=== PATIENT | male | born 1940 | race Caucasian/White ===

== ENCOUNTER 2017-05-31 07:03 | Emergency (ER) | payer OTHER ==
[~2017-05-31] VITALS: Ht 177.8 cm; Wt 86.2 kg
--- NOTE | ~2017-05-31 | EKG ---
[address] [place] [address] ELECTROCARDIOGRAM REPORT Name: KRISTINE ALFRED Room #: DEP [facility] [id number] Admission: 05/31/17 Attend Phys: Discharge: 05/31/17 Date of : 38 Report #: [id number] THIS REPORT FOR: //name// [facility] ED Test Date: 2017-05-31 Test Time: 07:24:36 Pat Name: KRISTINE ALFRED Department: Room: Gender: M Resin Shaver: ELISEO : 1940 Requested By: Sofy Acevedo Order Number: [id number] MD: Dre Lopez Measurements Intervals [place] Rate: 89 P: 48 NM: 164 QRS: -12 QRSD: 89 T: 62 QT: 397 QTc: 484 Interpretive Statements Sinus rhythm Inferior infarct, old Anterior infarct, old Compared to ECG 03/14/2004 09:29:55 Criteria for inferior infarct are now present Electronically Signed On 06-01-2017 7:50:41 CDT by Dre Lopez [email or web address] <ELECTRONICALLY SIGNED> By: Dre Lopez MD, [facility] 06/01/17 0750 3 3 Dre Lopez MD, [facility] /EPI
[2017-05-31 07:48] LABS: ABSOLUTE NEUTROPHILS 2.8 thou/uL (1.4-8.2); BASOPHILS 0.8 % (0.0-2.0); EOSINOPHILS 0.6 % (0.0-3.0); HEMATOCRIT 48.7 % (42.0-52.0); HEMOGLOBIN 16.6 gm/dL (14.0-18.0); LYMPHOCYTES 20.7 % (24.0-44.0); MCV 94.3 fL (80.0-100.0); MONOCYTES 8.3 % (1.0-8.0); PLATELET COUNT 165 thou/uL (150-400); POLYS 69.6 % (36.0-66.0); RBC 5.16 mil/uL (4.50-6.00); RDW 13.8 % (10.5-14.5)
[2017-05-31 07:56] LABS: MANUAL DIFF NO
[2017-05-31 07:59] LABS: ANION GAP 8 mmol/L (7-16); BUN 19 mg/dL (7-18); CALCIUM 9.3 mg/dL (8.5-10.1); CHLORIDE 102 mmol/L (98-107); CO2 29 mmol/L (21-32); CREATININE 1.2 mg/dL (0.7-1.3); GLUCOSE 171 mg/dL (74-106); POTASSIUM 4.2 mmol/L (3.5-5.1); SODIUM 139 mmol/L (136-145)
[2017-05-31 08:07] LABS: MAGNESIUM 2.1 mg/dL (1.8-2.4); TROPONIN-I < 0.04 ng/mL (<0.04-0.07)
[2017-05-31] MEDS ORDERED: PRINIVIL10 MG PO (09:18)
[2017-05-31] MEDS ORDERED: ATORVASTATIN CA40 MG PO (09:18)
[2017-05-31] MEDS ORDERED: LOPRESSOR50 PO (09:18)
[2017-05-31] MEDS ORDERED: ASPIR 8181 MG PO (09:19)
[2017-05-31 10:40] VITALS: BP 135/73
== END 2017-05-31 10:43 | disposition home or self-care (01) ==
LOC: ER 07:03
PROVIDERS: Emergency Medicine
DX: R42 Dizziness and giddiness (principal); R00.2 Palpitations; I10 Essential (primary) hypertension; F10.99 Alcohol use, unspecified with unspecified alcohol-induced disorder; Z86.79 Personal history of other diseases of the circulatory system

== ENCOUNTER 2019-03-07 10:46 | Emergency (ER) | payer OTHER ==
[~2019-03-07] VITALS: Ht 177.8 cm; Wt 86.2 kg
[~2019-03-07 10:46] MED LIST: ASPIR 8181 MG PO; ATORVASTATIN CA40 MG PO; LOPRESSOR50 PO; PRINIVIL10 MG PO
[2019-03-07 11:26] LABS: HEMOGLOBIN 16.4 gm/dL (14.0-18.0); RDW 13.8 % (10.5-14.5); WBC 3.8 thou/uL (4.0-11.0)
[2019-03-07 11:28] LABS: ABSOLUTE NEUTROPHILS 2.7 thou/uL (1.4-8.2); EOSINOPHILS 0.7 % (0.0-3.0); HEMATOCRIT 48.1 % (42.0-52.0); LYMPHOCYTES 18.9 % (24.0-44.0); MCH 31.7 pg (26.0-34.0); MCHC 34.1 g/dL (28.0-37.0); MCV 92.8 fL (80.0-100.0); MONOCYTES 7.3 % (1.0-8.0); PLATELET COUNT 186 thou/uL (150-400); POLYS 72.1 % (36.0-66.0); RBC 5.18 mil/uL (4.50-6.00)
[2019-03-07 11:36] LABS: ANION GAP 9 mmol/L (7-16); BUN 21 mg/dL (7-18); CALCIUM 9.2 mg/dL (8.5-10.1); CHLORIDE 101 mmol/L (98-107); CO2 26 mmol/L (21-32); CREATININE 1.1 mg/dL (0.7-1.3); GLUCOSE 195 mg/dL (74-106); POTASSIUM 4.1 mmol/L (3.5-5.1); SODIUM 136 mmol/L (136-145)
[2019-03-07 11:47] LABS: ALBUMIN 4.4 g/dL (3.4-5.0); DIRECT BILIRUBIN 0.1 mg/dL (<0.1-0.3); LIPASE 172 U/L (73-393); MAGNESIUM 2.3 mg/dL (1.8-2.4); SGOT 26 U/L (15-37); SGPT 30 U/L (30-65); TOTAL BILIRUBIN 0.7 mg/dL (<0.1-1.0); TROPONIN-I <0.06 ng/mL (<0.06)
[2019-03-07] MEDS ORDERED: UNICOMPLEX M TA1 TA1 PO (11:56)
[2019-03-07] MEDS ORDERED: CLARITIN10 MG PO (11:56)
[2019-03-07] MEDS ORDERED: OMEPRAZOLE 20 M20 M1 PO (12:34)
[2019-03-07 13:14] VITALS: BP 125/65
--- NOTE | 2019-03-08 09:25 | EKG ---
[place] [address] [place] [address] ELECTROCARDIOGRAM REPORT Name: KRISTINE ALFRED [facility] #: [facility] [id number] ������������������ Admission: 03/07/19 ������������������ Attend Phys: Discharge: 03/07/19 ������������������ Date of : 38 Report #: [id number] ����������������������������������������������������������������� [id number] THIS REPORT FOR: //name// [facility] ED Test Date: 2019-03-07 Test Time: 11:05:41 Pat Name: KRISTINE ALFRED Department: Room: Gender: M Pasteurizer: gerry : 1940 Requested By: Sofy Acevedo Order Number: [id number] MD: Dre Lopez Measurements Intervals [place] Rate: 78 P: 82 [place]: 164 QRS: 46 QRSD: 98 T: 86 QT: 380 QTc: 433 Interpretive Statements Sinus rhythm Anterior infarct, old Compared to ECG 05/31/2017 07:24:36 No significant changes Electronically Signed On 03-08-2019 9:25:30 CDT by Dre Lopez [email or web address] ��������������������������������������������� <ELECTRONICALLY SIGNED> ���������������������������������������� By: Dre Lopez MD, [facility] ��������������������������������������������� 03/08/19 0925 1105 1105 Dre Lopez MD, [facility] /EPI
== END 2019-03-07 13:14 | disposition home or self-care (01) ==
LOC: ER 10:46
PROVIDERS: Emergency Medicine
DX: R42 Dizziness and giddiness (principal); I10 Essential (primary) hypertension; R00.0 Tachycardia, unspecified

== ENCOUNTER 2020-02-14 23:20 | Inpatient (IN) | payer OTHER ==
[~2020-02-14] VITALS: Ht 177.8 cm; Wt 86.2 kg
--- NOTE | ~2020-02-14 | EMS ---
[address] [address] EMS Patient Care Report Name: KRISTINE ALFRED Room #: REG [place]#: [id number] Admission: 02/14/20 Attend Phys: Discharge: Date of : 38 Report #: [id number] THIS REPORT FOR: //name// Report Transmitted: 02/15/2020 01:07 EMS Care Summary [facility] MED-ACT Incident [id number] @ 02/14/2020 22:29 Incident Location [address] [place] [address] Patient KRISTINE ALFRED Male, 79 Years 1940 Patient Address [address] [place] [address] Patient History Hypertension (HTN),Cardiac - Stent,Coronary Artery Bypass Graft (CABG), Patient Allergies No known allergies, Patient Medications Metoprolol, Atorvastatin, Chief Complaint Chest discomfort Disposition Transported No Lights/[place] Dispatch Reason Chest Pain (Non-Traumatic) Transported To [facility] Narrative [id number] arrived at a residence to find pt. sitting in chair in living room, being assessed by OPFD. Pt. reports that at about 6 p.m. this evening, he was going on a walk, and started noticing discomfort in his chest that radiated down his left arm. Pt. also reports he felt "shaky" and "like something wasn't right". [address] [address] EMS Patient Care Report Name: KRISTINE ALFRED Room #: REG [facility]#: [id number] Admission: 02/14/20 Attend Phys: Discharge: Date of : 39 Report #: [id number] Pt. reports these symptoms felt similar to a previous heart attack he experienced in 2003. Pt. reports he took 324mg ASA and one NTG tablet prior to our arrival, and the symptoms have mostly subsided. Pt. still complains of a "shaky" feeling and overall malaise. Pt. denies headache or dizziness, trouble breathing, nausea/vomiting, or any recent illness/injury. Acquired 12 lead EKG prior to moving pt. EKG showed no significant changes/findings. Once EKG was acquired, assisted pt. from chair to cot. Secured to cot and moved to ambulance. Initiated venous access and reassessed EKG, vitals signs, and pt. condition. Pt. reported he felt "mostly better" prior to arrival at the hospital. Vital signs remained unchanged. Assisted pt. from cot to hospital bed and gave report to RN at [facility]. Initial Vitals @PTAP: 90,BP: 201/103,SpO2: 96, @PTAP: 81,SpO2: 97, @22:41P: 78,R: 18,BP: 172/94,Pain: 2/10,GCS: 15,Glucose: 146,SpO2: 95,Revised Trauma: 12,KS Suspected: false @PTAP: 91,BP: 178/127, @22:51P: 84,BP: 188/113,SpO2: 83, @22:55P: 86,BP: 211/104,SpO2: 81, Assessments @22:40MENTAL:Person Oriented,Time Oriented,Place Oriented,Event Oriented,SKIN:Pale,HEENT:Head/Face: No Abnormalities,Eyes: No Abnormalities,Neck/Airway: No Abnormalities,LUNG SOUNDS:Right Upper: Other,Left Upper: No Abnormalities,Left Lower: No Abnormalities,Right Lower: No Abnormalities,ABDOMEN:Right Upper: Other,Left Upper: No Abnormalities,Left Lower: No Abnormalities,Right Lower: No Abnormalities,PELVIS//GI:No Abnormalities,EXTREMITIES:Left Arm: No Abnormalities,Right Arm: No Abnormalities,Left Leg: No Abnormalities,Right Leg: No Abnormalities,PULSE:NEURO:No Abnormalities, Impression Angina pectoris Procedures @22:4012-Lead ECGResponse: UnchangedSucceeded@22:50Saline Lock 10cc (18 ga) Site: Antecubital-RightResponse: UnchangedSucceeded@PTAAspirin - 324 Milligrams (mg) - OralResponse: Unchanged Timeline SUPERVISOR STATEMENT CLERKS,Aspirin - 324 Milligrams (mg) - Oral,Response: Unchanged SUPERVISOR STATEMENT CLERKS,BP: 201/103 M,PULSE: 90,RR: R,SPO2: 96 Ox,ETCO2: ,BG: ,PAIN: ,GCS: , SUPERVISOR STATEMENT CLERKS,BP: / M,PULSE: 81,RR: R,SPO2: 97 Ox,ETCO2: ,BG: ,PAIN: ,GCS: , SUPERVISOR STATEMENT CLERKS,BP: 178/127 M,PULSE: 91,RR: R,SPO2: Ox,ETCO2: ,BG: ,PAIN: ,GCS: , 22:25,Call Received [address] [address] EMS Patient Care Report Name: KRISTINE ALFRED Room #: REG [facility].#: [id number] Admission: 02/14/20 Attend Phys: Discharge: Date of : 38 Report #: [id number] 22:25,Psap Call 22:29,Dispatched 22:30,En Route 22:36,On Scene 22:38,At Patient 22:40,12-Lead ECG,Response: UnchangedSucceeded, 22:41,BP: 172/94 M,PULSE: 78,RR: 18 R,SPO2: 95 Ox,ETCO2: ,B,PAIN: 2,GCS: 15, 22:50,Saline Lock 10cc 18 ga Site: Antecubital-Right,Response: UnchangedSucceeded, 22:51,BP: 188/113 M,PULSE: 84,RR: R,SPO2: 83 Ox,ETCO2: ,BG: ,PAIN: ,GCS: , 22:54,Depart Scene 22:55,BP: 211/104 M,PULSE: 86,RR: R,SPO2: 81 Ox,ETCO2: ,BG: ,PAIN: ,GCS: , 23:03,At Destination 23:27,Call Closed Disclaimer v1.1 Copyright 2020 [employer] This EMS Care Summary contains data elements from the applicable legal record (which may be displayed differently). It is designed to provide pertinent information for the following purposes: continuity of care, clinical quality, and state data reporting. The complete legal record is available to ED staff and administrators of the receiving hospital in [employer]'s Patient Tracker. All data is provided "as is."
[~2020-02-14 23:20] MED LIST changes: +CLARITIN10 MG PO; +OMEPRAZOLE 20 M20 M1 PO; +UNICOMPLEX M TA1 TA1 PO
[2020-02-14 23:27] VITALS: BP 182/103
[2020-02-15] VITALS (7 sets, daily range): BP systolic 114–151; BP diastolic 65–101
[2020-02-15 00:54] LABS: ABSOLUTE NEUTROPHILS 2.1 thou/uL (1.4-8.2); BASOPHILS 0.5 % (0.0-2.0); EOSINOPHILS 1.2 % (0.0-3.0); HEMATOCRIT 46.5 % (42.0-52.0); HEMOGLOBIN 15.8 gm/dL (14.0-18.0); LYMPHOCYTES 42.9 % (24.0-44.0); MCHC 33.9 g/dL (28.0-37.0); MCV 94.4 fL (80.0-100.0); MONOCYTES 9.8 % (1.0-8.0); PLATELET COUNT 194 thou/uL (150-400); POLYS 45.6 % (36.0-66.0); RBC 4.93 mil/uL (4.50-6.00); RDW 13.8 % (10.5-14.5); WBC 4.7 thou/uL (4.0-11.0)
[2020-02-15 00:55] LABS: ANION GAP 12 mmol/L (7-16); BUN 21 mg/dL (7-18); CALCIUM 8.6 mg/dL (8.5-10.1); CHLORIDE 100 mmol/L (98-107); CO2 27 mmol/L (21-32); CREATININE 1.3 mg/dL (0.7-1.3); GLUCOSE 142 mg/dL (74-106); POTASSIUM 3.6 mmol/L (3.5-5.1); SODIUM 139 mmol/L (136-145)
[2020-02-15 01:05] LABS: ALBUMIN 4.1 g/dL (3.4-5.0); SGOT 34 U/L (15-37); SGPT 28 U/L (30-65); TOTAL BILIRUBIN 0.6 mg/dL (<0.1-1.0); TOTAL PROTEIN 7.7 g/dL (6.4-8.2); TROPONIN-I <0.06 ng/mL (<0.06)
--- NOTE | 2020-02-15 03:44 | NUR ---
ADMITTED FROM ED. PT AT HOME 2 EPISODES OF CHEST PAIN. FIRST AROUND 1800 SIDES OF CHEST AND L ARM. ANOTHER EPISODE AT REST LATER IN THE EVENING. EMS CALLED. PT LIVES WITH AT HOME. RETIRED FRAME NAILER. INDEP STEADY GAIT. NO CHEST PAIN AT THIS TIME. PT HAS BELONGINGS AT BEDSIDE. PT HAS HX OF NE 1997, HTN, CABG HX AND PT OF DR DURAN AND PCP ANDREZ. PT VERBALIZED UNDERSTANDING TO CALL FOR AMBULATION ASSISTANCE. SCDS ON.
[2020-02-15] MEDS ORDERED: TOPROL XL50 MG PO (04:05)
[2020-02-15 07:39] LABS: CHOLESTEROL 127 mg/dL (<200); HDL CHOLESTEROL 37 mg/dL (>40); LDL CHOLESTEROL 75 mg/dL (<100); TC:HDL 3.4 Ratio (Not establshd); TRIGLYCERIDE 77 mg/dL (<150); VLDL 15 mg/dL (<40)
--- NOTE | 2020-02-15 10:01 | EKG ---
[facility] [place] [address] ELECTROCARDIOGRAM REPORT Name: KRISTINE ALFRED Room #: 215-P ADM IN M.R.#: [id number] Admission: 02/15/20 Attend Phys: Chuy Townsend MD Discharge: Date of : 39 Report #: [id number] THIS REPORT FOR: cc: Jerald Alcazar MD, Rene P. MD Lundgren,Dre Nesbitt MD [facility] ~ THIS REPORT FOR: //name// [facility] ED Test Date: 2020-02-14 Test Time: 23:10:30 Pat Name: KRISTINE ALFRED Department: Room: [facility] Gender: M Change Analyst: HERMINIO : 1940 Requested By: Froylan Ramsey Order Number: [id number] MD: Dre Lopez Measurements Intervals [place] Rate: 81 P: 76 MO: 177 QRS: 5 QRSD: 87 T: 65 QT: 377 QTc: 438 Interpretive Statements Sinus rhythm Ventricular premature complex Probable left atrial enlargement Poor R wave progression Compared to ECG 03/07/2019 11:05:41 Ventricular premature complex(es) now present Electronically Signed On 02-15-2020 10:00:07 CDT by Dre Lopez [email or web address] <ELECTRONICALLY SIGNED> By: Dre Lopez MD, [facility] 02/15/20 1000 2310 2310 Dre Lopez MD, [facility] /EPI
--- NOTE | 2020-02-15 10:19 | 2DMMODE ---
[facility] [place] [address] 2 D/M-MODE ECHOCARDIOGRAM Name: KRISTINE ALFRED Room #: 215-P ADM IN M.R.#: [id number] Admission: 02/15/20 Attend Phys: Chuy Townsend MD Discharge: Date of : 38 Report #: [id number] THIS REPORT FOR: cc: Jerald Alcazar MD, Rene P. MD Lundgren, Craig H. MD [facility] ~ APPROVED REPORT Study performed: 02/15/2020 09:14:21 EXAM: Comprehensive 2D, Doppler, and color-flow Echocardiogram Patient Location: Bedside Room #: 215 Status: on-call BSA: 2.04 HR: 75 bpm BP: 146/77 mmHg Rhythm: NSR/PVCs Other Information Study Quality: Adequate Technically limited study due to lung artifact. Indications Chest Pain Hx: CABG, PVD, HTN, HLP. 2D Dimensions RVDd: 37.32 mm IVSd: 13.00 (7-11mm) LVOT Diam: 22.24 (18-24mm) LVDd: 47.00 mm PWd: 10.38 (7-11mm) LVDs: 30.18 (25-40mm) Aortic Root: 33.39 mm Volumes Left Atrial Volume (Systole) Single Plane 4CH: 46.27 mL Single Plane 2CH: 53.20 mL LA ESV Index: 27.00 mL/m2 Aortic Valve AoV Peak Burton.: 2.24 m/s AO Peak Gr.: 20.10 mmHg LVOT Max P.65 mmHg AO Mean Gr.: 12.41 mmHg [facility] [address] [place] [address] 2 D/M-MODE ECHOCARDIOGRAM Name: KRISTINE ALFRED Room #: 215-P [facility].#: [id number] Admission: 02/15/20 Attend Phys: Chuy Townsend MD Discharge: Date of : 38 Report #: [id number] AO V2 Mean: 1.69 m/s LVOT Max V: 1.08 m/s AO V2 VTI: 44.55 cm KATIE Vmax: 1.87 cm2 Mitral Valve E/A Ratio: 0.7 MV Decel. Time: 204.12 ms MV E Max Burton.: 0.58 m/s MV A Burton.: 0.84 m/s MV PHT: 59.19 ms IVRT: 119.95 ms Pulmonary Valve PV Peak Burton.: 0.78 m/s PV Peak Gr.: 2.46 mmHg Tricuspid Valve TR Peak Burton.: 2.52 m/s RAP Estimate: 5.00 mmHg TR Peak Gr.: 25.35 mmHg PA Pressure: 30.00 mmHg Left Ventricle The left ventricle is normal size. Mild basal septal hypertrophy is present. Left ventricular systolic function is normal. LVEF is 55-60%. Distal septal akinesis Mild diastolic dysfunction Right Ventricle The right ventricle is normal size. The right ventricular systolic function is normal. Atria The left atrium size is normal. The right atrium size is normal. Aortic Valve Aortic valve is mildly calcified, possibly bicuspid; mild stenosis. No aortic regurgitation is present. There is very mild valvular aortic stenosis. Calculated aortic valve area is 1.9 cm2 with maximum pressure gradient of 20 mmHg and mean pressure gradient of 12 mmHg. Mitral Valve The mitral valve is normal in structure. No mitral regurgitation. No evidence of mitral valve stenosis. Tricuspid Valve The tricuspid valve is normal in structure. Mild tricuspid [facility] [address] [place] [address] 2 D/M-MODE ECHOCARDIOGRAM Name: ALFREDKRISTINE SHA Room #: 215-P [facility] IN .R.#: [id number] Admission: 02/15/20 Attend Phys: Chuy Townsend MD Discharge: Date of : 38 Report #: [id number] regurgitation. Estimated PAP is 30mmHg. Pulmonic Valve Pulmonic valve is not well visualized. Great Vessels The aortic root is normal in size. Ascending aorta is not well visualized. IVC is normal in size and collapses >50% with inspiration. Pericardium There is no pericardial effusion. <Conclusion> Left ventricular systolic function is normal. LVEF is 55-60%. Distal septal akinesis Mild diastolic dysfunction Aortic valve is mildly calcified, possibly bicuspid; mild stenosis. No insufficiency Calculated aortic valve area is 1.9 cm2 with maximum pressure gradient of 20 mmHg and mean pressure gradient of 12 mmHg. The mitral valve is normal in structure. No mitral regurgitation. Mild tricuspid regurgitation. Estimated pulmonary artery pressure of 30mmHg. There is no pericardial effusion. <ELECTRONICALLY SIGNED> By: Dre Lopez MD, [facility] 02/15/20 1017 1017 1017 Dre Lopez MD, [facility] /INF
--- NOTE | 2020-02-15 19:56 | NUR ---
ASSUMED CARE OF PT AT SHIFT CHANGE. ASSESSMENTS CHARTED. MEDS GIVEN PER DEC. PT A&OX4, NO C/O PAIN. UP AD MOHSEN. PLAN FOR ANTIOGRAM ON MONDAY. WILL CONTINUE TO MONITOR.
--- NOTE | 2020-02-16 01:31 | NUR ---
PT LYING IN BED. DENIES PAIN. RESTING COMFORTABLY. NO NEEDS VOICED. CALL LIGHT WITHIN REACH. FREQUENT OBSERVATION.
[2020-02-16 05:42] VITALS: BP 154/88
[2020-02-16 05:50] LABS: CREATININE 1.1 mg/dL (0.7-1.3); POTASSIUM 3.8 mmol/L (3.5-5.1)
[2020-02-16 05:55] LABS: GLYCOHEMOGLOBIN (HGB A1C) 6.1 % (4.8-5.6)
[2020-02-16 08:00] VITALS: BP 127/71
[2020-02-16 08:40] VITALS: BP 106/58
--- NOTE | 2020-02-16 10:12 | EKG ---
[facility] [place] [address] ELECTROCARDIOGRAM REPORT Name: KRISTINE ALFRED Room #: 215-P ADM IN M.R.#: [id number] Admission: 02/15/20 Attend Phys: Chuy Townsend MD Discharge: Date of : 38 Report #: [id number] THIS REPORT FOR: cc: Jerald Alcazar MD, Rene P. MD Lundgren,Dre Nesbitt MD [facility] ~ THIS REPORT FOR: //name// [facility] Test Date: 2020-02-15 Test Time: 10:16:01 Pat Name: KRISTINE ALFRED Department: Room: 215 Gender: M Internal Sales: : 1940 Requested By: Susana Hathaway Order Number: [id number] MD: Dre Lopez Measurements Intervals [place] Rate: 76 P: 73 [place]: 169 QRS: 32 QRSD: 97 T: 78 QT: 394 QTc: 444 Interpretive Statements Sinus rhythm Cannot rule out inferior infarct, old Compared to ECG 02/14/2020 23:10:30 Ventricular premature complex(es) no longer present Electronically Signed On 02-16-2020 10:10:40 CDT by Dre Lopez [email or web address] <ELECTRONICALLY SIGNED> By: Dre Lopez MD, [facility] 02/16/20 1010 1016 1016 Dre Lopez MD, [facility] /EPI
--- NOTE | 2020-02-16 10:29 | EKG ---
[facility] [place] [address] ELECTROCARDIOGRAM REPORT Name: KRISTINE ALFRED Room #: 215-P ADM IN M.R.#: [id number] Admission: 02/15/20 Attend Phys: Chuy Townsend MD Discharge: Date of : 38 Report #: [id number] THIS REPORT FOR: cc: Jerald Alcazar MD, Rene P. MD Lundgren,Dre Nesbitt MD [facility] ~ THIS REPORT FOR: //name// [facility] Test Date: 2020-02-16 Test Time: 10:13:46 Pat Name: KRISTINE ALFRED Department: Room: 215 P Gender: M Estate Planning Paralegal: AIDE : 1940 Requested By: Dre Lopez Order Number: [id number] MD: Dre Lopez Measurements Intervals [place] Rate: 73 P: 65 [place]: 177 QRS: -3 QRSD: 96 T: 70 QT: 404 QTc: 446 Interpretive Statements Sinus rhythm Ventricular premature complex Inferior infarct, old Baseline wander in lead(s) V1 Compared to ECG 02/15/2020 10:16:01 Ventricular premature complex(es) now present Electronically Signed On 02-16-2020 10:27:51 CDT by Dre Lopez [email or web address] <ELECTRONICALLY SIGNED> By: Dre Lopez MD, [facility] 02/16/20 1027 1013 1013 Dre Lopez MD, [facility] /EPI
[2020-02-16 16:00] VITALS: BP 128/71
--- NOTE | 2020-02-16 16:07 | NUR ---
PT CARE ASSUMED AT 0700. ASSESSMENTS CHARTED. MEDICATION CHARTED. POSSIBLE ANGIOGRAM 02/17/20. PT NPO AFTER 0000. PT COOPERATIVE.
[2020-02-16 16:30] VITALS: BP 128/71
[2020-02-16 20:56] VITALS: BP 106/67
[2020-02-17] VITALS (9 sets, daily range): BP systolic 99–146; BP diastolic 57–96
--- NOTE | 2020-02-17 01:54 | NUR ---
PT AMBULATING INDEPENDENTLY AND IS TOLERATING WELL. DENIES PAIN. PLAN FOR ANGIOGRAM 02/16. RESTING COMFORTABLY. NO NEEDS VOICED. CALL LIGHT WITHIN REACH. FREQUENT OBSERVATION.
[2020-02-17] MEDS ORDERED: LISINOPRIL20 MG PO (12:31)
--- NOTE | 2020-02-17 13:50 | NUR ---
RECEIVED PT'S CARE AROUND 0730; PT. ON BED; AOX4; PARTIAL AM MEDICATION GIVEN BEFORE GOING FOR CARDIAC CATH; NPO; VS WNL; GONE FRO PROCEDURE BEFORE 0800; BACK TO FLOOR CLOSE TO 1000; R. GROIN AREA; C/D/I; EDUCATED ABOUT BED REST; EDUCATED ABOUT HOLDING PRESSURE WHILE COUGHING; [facility]; HR ON THE 50s; NO C/O SOB OR DIZZINESS; OFF BED REST AT 1200; EDUCATED ABOUT STANDING SLOW DUE TO BEING OF BED REST FOR A FEW HOURS; [facility]; SR ON THE MONITOR; D/C ORDERS ON PLACE; EDUCATED ABOUT D/C PROCESS; [facility]; ASSESSMENT CHARGED; FOLLOWED POC; REQUESTED TO TALK WITH DR. DURAN; WATER QUALITY TESTER & PHYSICIAN NOTIFIED; PT. UPDATE ABOUT THEY WILL COMUNICATE WITH PT EITHER TODAY 02/17/2020 OR 02/18/2020; [facility];
--- NOTE | 2020-02-18 16:54 | CATHLAB ---
[facility] [place] [address] INVASIVE PROCEDURE REPORT Name: KRISTINE ALFRED Room #: 215-P DIS IN M.R.#: [id number] Admission: 02/15/20 Attend Phys: Jayden Patel Discharge: 02/17/20 Date of : 38 Report #: [id number] THIS REPORT FOR: cc: Jerald Alcazar MD, Rene P. MD Mancuso, Gerald M. MD [facility] ~ APPROVED REPORT Study performed: 02/17/2020 07:18:45 Patient Details Patient Status: In-Patient Room #: The patient is a 79 year-old male Event Personnel Bayron Duarte Engagement Specialist, Chari Wade RN, Jenny Garcia RTR, NUMERICAL CONTROL NESTING OPERATOR Scrub, Brook Garg Monitor, MICH WESTBROOK RN international account manager Performed Art Access - R femoral artery* Aortogram Abdominal Peripheral Angio 163235 14587 Initial Mod Sed Same Phys/QHP Gr 202982 55786 Mod Sed Same Phys/QHP Ea 862209 Left Heart Cath Coronaries, Bypass Grafts 1591096 LHCCORCABG Indication Chest pain Procedure Narrative The Right Groin^ was infiltrated with 1% Lidocaine subcutaneous anesthesia. A PINNACLE 6FR Sheath #[id number] sheath was inserted into the RFA 6F^. Coronary angiography was performed using coronary diagnostic catheters. The right coronary system was accessed and visualized with a JR4 catheter. The left coronary system was accessed and visualized with a JL4 catheter. The left ventricle was accessed and visualized with a STR PIG catheter. Left ventriculogram was performed in 30 degree projection. An aortogram of the abdominal aorta was performed. The patient tolerated the procedure well and there were no complications associated with the procedure. There was no hematoma. 3 GRAFTS: LOKESH TO LAD, SVG-TAMMY., AND SVG TO RCA (occluded) Intraoperative Conscious Sedation Sedation start time: 815 Case end Time: [facility] [address] [place] [address] INVASIVE PROCEDURE REPORT Name: KRISTINE ALFRED Room #: 215-P [facility] IN M.R.#: [id number] Admission: 02/15/20 Attend Phys: Jayden Roy Discharge: 02/17/20 Date of : 38 Report #: [id number] 0900 Fentanyl 75 mcg Versed 1 mg Fluoro Time: 3.40 minutes Dose: DAP 4661.70 cGycm2 573 mGy Contrast Type and Amount: Omnipaque 155 ml Hemodynamics The aortic pressure is 148/79 mmHg with a mean of 41 mmHg. The left ventricular pressure is 145/7 mmHg with a mean of mmHg. The left ventricular end diastolic pressure is 13 mmHg. Conclusion #1. 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 #3 the MITCHELL to LAD is intact is briskly filling a well preserved distal two thirds of this LAD and retrograde to a small diagonal branch. This supplies some of the inferior apex is a wraparound LAD. #4 RCA was a dominant vessel. It subtotally occluded proximally and then chronic total occlusion of the distal two thirds long segment faintly filling the small PDA via bridging collaterals. #5 the SVG to the PDA is occluded very proximal segment. Appears chronic. #6 the SVG to the OM branch is widely patent. It is retrograde filling a smaller OM system proximally. And some competitive filling into the AV groove circumflex. Mild disease noted. #7 normal left ventricular size systolic function mildly reduced with some anterior apical and mid inferior apical hypokinesis EF 50% range. 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 Recommendations plan: Continue aggressive risk factor modification. No indication for coronary intervention. Will monitor closely and obtain nuclear correlation to follow these complex anatomy. No indication for intervention. <ELECTRONICALLY SIGNED> By: Bayron Duarte MD, FACC 02/18/201651 51 51 Bayron Duarte MD, [facility]ACC /INF
== END 2020-02-17 14:30 | disposition home or self-care (01) | DRG 281 ==
LOC: ER 23:20 → EROBS 02-15 01:40 → 2N 02-15 01:40
PROVIDERS: Emergency Medicine; Nurse Practitioner Family; ADMIT Hospitalist
PROC: B2151ZZ Fluoroscopy of Left Heart using Low Osmolar Contrast (ICD-10-PCS; principal; 2020-02-17)
PROC: B2111ZZ Fluoroscopy of Multiple Coronary Arteries using Low Osmolar Contrast (ICD-10-PCS; principal; 2020-02-17)
PROC: B2131ZZ Fluoroscopy of Multiple Coronary Artery Bypass Grafts using Low Osmolar Contrast (ICD-10-PCS; principal; 2020-02-17)
PROC: B4101ZZ Fluoroscopy of Abdominal Aorta using Low Osmolar Contrast (ICD-10-PCS; principal; 2020-02-17)
PROC: 4A023N7 Measurement of Cardiac Sampling and Pressure, Left Heart, Percutaneous Approach (ICD-10-PCS; principal; 2020-02-17)
PROC: B2181ZZ Fluoroscopy of Left Internal Mammary Bypass Graft using Low Osmolar Contrast (ICD-10-PCS; principal; 2020-02-17)
DX: I21.4 Non-ST elevation (NSTEMI) myocardial infarction (principal); T82.855A Stenosis of coronary artery stent, initial encounter; T82.857A Stenosis of other cardiac prosthetic devices, implants and grafts, initial encounter; I10 Essential (primary) hypertension; G47.00 Insomnia, unspecified; E78.5 Hyperlipidemia, unspecified; Z95.1 Presence of aortocoronary bypass graft; I25.2 Old myocardial infarction; Z95.5 Presence of coronary angioplasty implant and graft; Z79.82 Long term (current) use of aspirin; Z79.899 Other long term (current) drug therapy; Z87.891 Personal history of nicotine dependence; Y92.89 Other specified places as the place of occurrence of the external cause; Y84.0 Cardiac catheterization as the cause of abnormal reaction of the patient, or of later complication, without mention of misadventure at the time of the procedure; E78.00 Pure hypercholesterolemia, unspecified; I65.23 Occlusion and stenosis of bilateral carotid arteries; I25.110 Atherosclerotic heart disease of native coronary artery with unstable angina pectoris
CPT/HCPCS: 10081

== ENCOUNTER → 2020-02-27 | Outpatient (CLI) | payer OTHER ==
[~2020-02-27] MED LIST changes: +LISINOPRIL20 MG PO; +TOPROL XL50 MG PO
== END ==
LOC: SJCVCIMAG 08:43
DX: I71.4 Abdominal aortic aneurysm, without rupture (principal); I10 Essential (primary) hypertension; I49.3 Ventricular premature depolarization; I25.10 Atherosclerotic heart disease of native coronary artery without angina pectoris; E78.5 Hyperlipidemia, unspecified

== ENCOUNTER → 2020-08-27 | Outpatient (CLI) | payer OTHER | LOC: SJCVC 11:55 | PROVIDERS: ATTEND Internal Medicine Cardiovascular Disease | DX: I25.810 Atherosclerosis of coronary artery bypass graft(s) without angina pectoris (principal); R94.31 Abnormal electrocardiogram [ECG] [EKG]; I10 Essential (primary) hypertension; E78.5 Hyperlipidemia, unspecified; I65.23 Occlusion and stenosis of bilateral carotid arteries; Z95.1 Presence of aortocoronary bypass graft; Z79.899 Other long term (current) drug therapy; Z87.891 Personal history of nicotine dependence ==

== ENCOUNTER → 2020-09-21 | Outpatient (CLI) | payer OTHER | LOC: LAB 15:03 | PROVIDERS: ATTEND Family Medicine | DX: Z20.828 Contact with and (suspected) exposure to other viral communicable diseases (principal) ==

== ENCOUNTER → 2021-05-26 | Outpatient (CLI) | payer OTHER | LOC: SJCVC 11:36 | PROVIDERS: ATTEND Internal Medicine Cardiovascular Disease | DX: R94.31 Abnormal electrocardiogram [ECG] [EKG] (principal); I25.810 Atherosclerosis of coronary artery bypass graft(s) without angina pectoris; I10 Essential (primary) hypertension; E78.5 Hyperlipidemia, unspecified; I35.0 Nonrheumatic aortic (valve) stenosis; I65.23 Occlusion and stenosis of bilateral carotid arteries; I71.4 Abdominal aortic aneurysm, without rupture; Z95.1 Presence of aortocoronary bypass graft; Z98.890 Other specified postprocedural states; Z79.82 Long term (current) use of aspirin; Z79.899 Other long term (current) drug therapy; Z87.891 Personal history of nicotine dependence; Z82.49 Family history of ischemic heart disease and other diseases of the circulatory system ==